=== PATIENT | female | born 1970 | race Caucasian/White ===

== ENCOUNTER 2017-01-26 20:12 | Emergency (ER) | payer MEDICAID ==
[~2017-01-26] VITALS: Ht 162.6 cm; Wt 82.0 kg
[2017-01-27 00:35] VITALS: BP 139/97
== END 2017-01-27 00:39 | disposition home or self-care (01) ==
LOC: EMS 20:14
DX: J04.0 Acute laryngitis (principal); J06.9 Acute upper respiratory infection, unspecified
CPT/HCPCS: 99283